=== PATIENT | male | born 1945 | race Caucasian/White ===

== ENCOUNTER 2017-04-06 11:05 | Emergency (ER) ==
[2017-04-06 11:12] VITALS: BP 176/92; TEMP 97.4; BMI 26.3
--- NOTE | 2017-04-06 11:23 | ED.PDOC ---
General ED Provider: Dr. BHARAT LADD JR Chief Complaint: Fall Stated Complaint: struck school desk with right knee during the night fell right side-pain no loss of consciousness patient has abrasion to left eyebrow. denies head injury[End]97.4 79 20 92% 176/92 10 Time Seen by Physician: 11:20 Mode of Arrival: Walk-In Information Source: Patient Exam Limitations: No limitations Primary Care Provider: [facility] Nursing and Triage Documentation Reviewed and Agree: No Review of Systems - Review Of Systems Constitutional: Reports: No symptoms Eyes: Reports: No symptoms Ears, Nose, Mouth, Throat: Reports: No symptoms Respiratory: Reports: Cough Cardiac: Reports: No symptoms GI: Reports: No symptoms : Reports: No symptoms Musculoskeletal: Reports: Other Skin: Reports: Bruising Neurological: Reports: No symptoms Endocrine: Reports: No symptoms Hematologic/Lymphatic: Reports: No symptoms All Other Systems: Other Past Medical History - Past Medical History Endocrine: Reports: Other (potassium) Cardiovascular: Reports: Hypertension Respiratory: Reports: None Hematological: Reports: None Gastrointestinal: Reports: None Genitourinary: Reports: CKD Neuro/Psych: Reports: None Musculoskeletal: Reports: None Cancer: Reports: None Other Pertinent Past Medical History: prod a lot of potassium - Surgical History General Surgical History: Reports: Orthopedic (lower back surg left knee surg left ankle surg) - Family History Family History: Reports: Unknown - Social History Smoking Status: Current every day smoker Hx Substance Use: No Alcohol Screening: Occasionally Physical Exam - Physical Exam Appearance: Well-appearing Pain Distress: Moderate Eyes: LIZ, EOMI, Conjunctiva clear ENT: Ears normal, Nose normal, Oropharynx normal Neck: Supple Respiratory: Airway patent, Breath sounds clear, Breath sounds equal, Respirations nonlabored Cardiovascular: RRR, Pulses normal, No rub, No murmur GI/: Soft, Nontender, No masses, Bowel sounds normal, No Organomegaly Musculoskeletal: Normal strength, ROM intact, No edema, No calf tenderness Skin: Warm, Dry, Normal color (ecchymoses over right ant lateral chest) Neurological: Sensation intact, Motor intact Psychiatric: Affect appropriate, Mood appropriate Critical Care Note - Critical Care Note Total Time (mins): 0 Course - Course Orders, Labs, Meds: Orders Category Date Time Status CXR [CHEST, 2 VIEWS PA & LAT] Stat RADS 04/06/17 11:23 Completed RIBS, UNILATERAL RIGHT Stat RADS 04/06/17 11:23 Completed Vital Signs: Temp Pulse Resp BP Pulse Ox 04/06/17 11:06 97.4 F L 69 20 176/92 H 92 L Departure - Departure Time of Disposition: 12:14 Disposition: HOME SELF-CARE Discharge Problem: Falls Contusion of rib on right side Qualifiers: Encounter type: initial encounter Qualifier Code: (S20.211A) Contusion of right front wall of thorax, initial encounter Instructions: Contusion in Adults (ED) Condition: Good Pt referred to PMD for follow-up: Yes Additional Instructions: plenty of fluids Tylenol or [place] for pain may use robitussin with codeine for cough do not take norco with codeine recheck PMD one week Prescriptions: Hydrocodone Bit/Acetaminophen [[place] 5-325] 1 - 2 tab PO Q6HR PRN #12 tablet PRN Reason: pain Guaifenesin/Codeine Phosphate [Robitussin AC Syrup] 10 ml PO Q6H PRN #240 ml PRN Reason: Cough Allergies/Adverse Reactions: Allergies acetaminophen [From Tylox] Adverse Reaction (Verified 08/09/14 16:13) oxycodone HCl [From Tylox] Adverse Reaction (Verified 04/06/17 11:12) shaky and nervous Home Medications: Ambulatory Orders Albuterol Sulfate [Proventil Hfa] 2 puff IH Q4-6H PRN 08/09/14 Atenolol 25 mg PO DAILY 08/09/14 Omeprazole [Prilosec] 20 mg PO QDAC 08/09/14 Guaifenesin/Codeine Phosphate [Robitussin AC Syrup] 10 ml PO Q6H PRN #240 ml Hydrocodone Bit/Acetaminophen [[place] 5-325] 1 - 2 tab PO Q6HR PRN #12 tablet
--- NOTE | 2017-04-06 11:53 | DI ---
EXAM: Two views of the chest. History: Chest trauma. Comparison: Chest radiograph 08/09/2014 Findings: Heart size is within normal limits. Subsegmental atelectasis seen at the right lung base . No focal consolidation. No appreciable pleural fluid and no pneumothorax. Atherosclerotic vascu lar calcifications. No acute osseous abnormalities. Impression: No acute cardiopulmonary process.
--- NOTE | 2017-04-06 12:00 | DI ---
EXAM: RIGHT RIBS HISTORY: Injury, pain FINDINGS: Right ribs four view. No definite displaced rib fracture is identified. Right lung is cl ear without evidence of consolidation, pleural fluid or pneumothorax. No obvious chest wall hematom a. IMPRESSION: No definite rib fracture identified.
== END 2017-04-06 12:36 | disposition home or self-care (01) ==
LOC: ED 11:05
DX: S20.211A Contusion of right front wall of thorax, initial encounter (principal); S89.91XA Unspecified injury of right lower leg, initial encounter; S00.212A Abrasion of left eyelid and periocular area, initial encounter; F17.210 Nicotine dependence, cigarettes, uncomplicated; W19.XXXA Unspecified fall, initial encounter
CPT/HCPCS: 99283